=== PATIENT | male | born 1960 | race Caucasian/White ===

== ENCOUNTER 2019-11-06 08:32 | Outpatient (CLI) | payer OTHER ==
[~2019-11-06] VITALS: Ht 172.7 cm; Wt 54.9 kg
[2019-11-06] VITALS (18 sets, daily range): BP systolic 104–172; BP diastolic 72–114
--- NOTE | ~2019-11-06 | HEMODYNAMI ---
PATIENT:INOCENCIO PRASAD MEDICAL RECORD: [id number] : 64 [id number] ADMISSION DATE: 11/06/19 Generatedon:11/06/201910:17 Patient name: INOCENCIO PRASAD Patient #: [id number] SSN: [id number] : 1960 Date of study: 11/06/2019 Page: Of Hemodynamic Procedure Report Patient Data Patient Demographics Procedure consent was obtained First Name: INOCENCIO Gender: Male Last Name: OSMAR : 1960 Patient #: [id number] Age: 59 year(s) Race: SSN: [id number] Additional ID: [id number] Contact details [address]: [address] [place] [address] State: [place] City: [place] Zip code: [facility] Past Medical History Allergies Allergen Reaction Date Comments Reported Erythromycin 11/06/2019 Admission Admission Data Admission Date: 11/06/2019 Admission Time: 8:32 Admit Source: Emergency department Height (in.): 68.11 BSA: 1.73 (m2) Height (cm.): 173 BMI: 20.38 (kg/m2) Weight (lbs.): 134.48 Weight (kg.): 61 Current Diagnosis Diagnosis Description STEMI Lab Results Lab Result Date: 11/06/2019 Lab Result Time: 0:00 CBC Name Units Result Min Max Hemoglobin g/dl 11.1 *-(----)-- 13.5 17.5 Procedure Procedure Types Cath Procedure Diagnostic Procedure LHC LH w/Coronaries FFR/IVUS FFR Initial Sedation Charges Moderate Sedation up to 15 minutes Moderate Sedation up to 30 minutes PCI Procedure AMI/SVG/SIGNALS INTELLIGENCE ANALYST PTCA or Stent SIGNALS INTELLIGENCE ANALYST-BMS/BHUPENDRA Initial Hemochron ACT Test Procedure Description Procedure Date Procedure Date: 11/06/2019 Procedure Start Time: 9:33 Procedure End Time: 10:12 Procedure Staff Name Function Eric Warner MD Performing Physician Brock Simons RT Scrub Clotilde Holt RT Monitor Nat Fernando RN Nurse Procedure Data Cath Procedure Fluoroscopy Diagnostic fluoroscopy Total fluoroscopy Time: 8.4 time: 8.4 min min Diagnostic fluoroscopy Total fluoroscopy dose: 751 dose: 751 mGy mGy Contrast Material Contrast Material Type Amount (ml) Isovue 300 161 Entry Location Entry Primary Successful Side Size Upsize Upsize Entry Closure Succes sful Closure Location (Fr) 1 (Fr) 2 (Fr) Remarks Device Remarks Femoral Right 6 Fr Exoseal artery Short Estimated blood loss: 10 ml Diagnostic catheters Device Type Used For End Catheter Placement MULTIPACK JL 4.0 5Fr Left Coronary catheter Angiography MULTIPACK 3DRC 5Fr Right Coronary catheter Angiography MULTIPACK Pigtail 5 Fr Ventriculography catheter MULTIPACK 3DRC 5Fr Right Coronary catheter Angiography Procedure Complications No complications Procedure Medications Medication Administration Route Dosage 0.9% NaCl I.V. 100 ml/hr Oxygen etCO2 Nasal cannula 2 l/min Lidocaine 2% added to field 20 Heparin Flush Bag added to field 2 bags (1000units/500ml NS) Versed I.V. 2 mg Fentanyl I.V. 50 mcg Heparin Bolus I.V. 2000 units Integrilin (Bolus I.V. 5.6 ml 2mg/ml) Integrilin (Bolus wasted 4.4 ml 2mg/ml) Versed I.V. 2 mg Fentanyl I.V. 50 mcg Plavix P.O. 600 mg Nitroglycerin IC/IA I.C. 50 mcg Hemodynamics Rest BSA: 1.73 (m2) HGB: 11.1 (g/dl) O2 Consumption: Estimated: 209.07 (ml/min) O2 Co nsumption indexed: Estimated:120.85 (ml/min/m) Heart Rate: 77 (bpm) Pressure Samples Time Site Value (mmHg) Purpose Heart Use Rate(bpm) 9:39 LV 113/-5,6 Snapshot 83 Gradients Valve Time Site Site Mean SEP/DFP Peak To Heart Use 1 2 (mmHg) (sec/min) Peak Rate (mmHg) (bpm) Aortic 9:40 LV AO 10 Snapshots Pre Cath Intra NCS Post Cath Vital Signs Time Heart Resp SPO2 etCO2 NIBP (mmHg) Rhythm Pain Sedation Rate (ipm) (%) (mmHg) Status Level (bpm) 9:28:58 77 13 98 29.2 145/97(125) NSR w/ ST 0 (11) 10(A) Elevation , No pain 9:33:17 76 14 98 38.2 139/91(117) NSR w/ ST 0 (11) 10(A) Elevation , No pain 9:37:34 80 16 98 21.7 122/78(100) NSR w/ ST 0 (11) 10(A) Elevation , No pain 9:41:48 85 14 98 42.7 116/74(89) NSR w/ ST 0 (11) 9(A) Elevation , No pain 9:45:58 83 15 98 44.9 109/70(91) NSR w/ ST 0 (11) 9(A) Elevation , No pain 9:50:06 84 16 98 47.2 111/71(93) NSR 0 (11) 9(A) , No pain 9:54:53 88 20 97 38.9 146/100(124) NSR 0 (11) 9(A) , No pain 9:59:52 91 15 98 36.7 Measuring NSR 0 (11) 9(A) , No pain 10:00:11 88 15 97 38.9 171/112(136) NSR 0 (11) 9(A) , No pain 10:04:35 74 10 98 39.7 161/105(134) NSR 0 (11) 9(A) , No pain 10:08:57 83 11 98 38.2 168/106(146) NSR 0 (11) 10(A) , No pain 10:13:19 92 15 40.4 168/103(116) NSR 0 (11) 10(A) , No pain Medications Time Medication Route Dose Verified Delivered Reason Notes Effectiveness by by 9:27:48 0.9% NaCl I.V. 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 2 mg Nat for sedation Timmy King RN 9:30:48 Fentanyl I.V. 50 Nat for sedation mcg Timmy King RN 9:36:03 Versed I.V. 2 mg Nat for sedation Timmy King RN 9:36:14 Fentanyl I.V. 50 Nat for sedation mcg Timmy King RN 9:43:22 Heparin Bolus I.V. 2000 Nat for units Timmy King anticoagulation RN 9:43:31 Integrilin I.V. 5.6 Nat for (Bolus 2mg/ml) ml Timmy King antiplatelet RN therapy 9:43:48 Integrilin wasted 4.4 Nat for (Bolus 2mg/ml) ml Timmy King antiplatelet RN therapy 9:53:06 Plavix P.O. 600 Nat for mg Timmy King antiplatelet RN therapy 9:56:33 Nitroglycerin I.C. 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 Angina may occur at rest. 9:07:29 ACCPatient has been prescribed/administered the following anti-anginal medication within the last 2 weeks: None 9:07:35 Procedure Status Emergent Heart Cath (AMI). 9:07:44 Time tracking: Call back (After hours or weekends) 9:07:50 Plan of Care:Hemodynamics will remain stable., Cardiac rhythm will remain stable., Comfort level will be maintained., Respiratory function will remain adequate., Patient/ family verbilizes understanding of procedure., Procedure tolerated without complication., Recovers from procedure without complications.. 9:07:55 Full Disclosure recording started 9:08:07 H&P Date Dictated: 11/06/2019 Within 30 days and on chart.. 9:08:11 Family unavailable. 9:08:14 Patient NPO since Midnight. 9:08:23 Patient allergic to Erythromycin 9:09:30 Is the patient allergic to Iodine/contrast media? No. 9:09:32 Was the patient premedicated? N/A 9:09:34 Is patient on blood thinner?No 9:09:39 ACC The patient was administered the following blood thiners within the last 24 hours: ACCHeparin 9:09:53 Patient diabetic? No. 9:10:38 Patient Height : 68.11 inches 9:10:41 Patient Weight : 134.48 lbs 9:10:47 Current Diagnosis : STEMI 9:11:32 Lab Result : Hemoglobin 11.1 g/dl 9:13:36 Procedure type changed to Cath procedure, Diagnostic procedure, LHC, LHC w/Coronaries, FFR/IVUS, FFR Initial, Sedation Charges, Moderate Sedation up to 15 minutes, Moderate Sedation up to 30 minutes, PCI procedure, AMI/SVG/SIGNALS INTELLIGENCE ANALYST PTCA or Stent, SIGNALS INTELLIGENCE ANALYST-BMS/BHUPENDRA Initial, Hemochron ACT Test 9:16:13 Maximum allowable contrast dose (3.7 X eGFR X 0.75)227 ml. 9:16:17 2) 60-89 Mildly reduced kidney function, and other findings (as for stage 1) point to kidney disease. 9:27:39 Vital chart was started 9:27:48 0.9% NaCl 100 ml/hr I.V. was administered by Nat King RN; used for procedure; Verbal order read back and verified. 9:27:54 Oxygen 2 l/min etCO2 Nasal cannula was administered by Nat King RN; used for procedure; Verbal order read back and verified. 9:27:59 Lidocaine 2% 20ml vial added to field was administered by Eric Warner MD; for local anesthetic; Verbal order read back and verified. 9:28:03 Heparin Flush Bag (1000units/500ml NS) 2 bags added to field was administered by Eric Warner MD; used for procedure; Verbal order read back and verified. 9:29:05 Patient arrives emergently. 9:29:07 Correct patient and procedure confirmed by team. 9:29:07 Warm blankets applied, and kyler hugger turned on for patient comfort. 9:29:08 ECG and BP/O2 sat monitors applied to patient. 9:29:09 Baseline sample Acquired. 9:29:33 Snore? Yes 9:29:34 Sleep apnea? Yes 9:29:41 Dentures? Yes in tight 9:29:45 Patient pain scale 0/10 ?. 9:29:53 IV patent on arrival in right antecubital with 0.9% NaCl at [facility]. 9:29:56 Lab results completed and on chart. 9:30:01 Right groin area was prepped with chlora-prep and draped in sterile fashion 9:30:05 Physician arrived 9:30:10 --------ALL STOP TIME OUT------ 9:30:11 Final Timeout: patient, procedure, and site verified with staff and physician. All members of the team are in agreement. 9:30:13 Right groin site verified by team. 9:30:18 Fire Safety Assessment: A--An alcohol-based skin anteseptic being used preoperatively., C--Open oxygen or nitrous oxide is being used., D--An ESU, laser, or fiber-optic light is being used. 9:30:21 Physical assessment completed. ASA score P 3 - A patient with severe systemic disease as per Eric Warner MD. 9:30:26 Sedation plan: IV Moderate Sedation Medication:Versed, Fentanyl 9:30:33 Use device set Femoral Dx 9:30:43 Versed 2 mg I.V. was administered by Nat King RN; for sedation; Verbal order read back and verified. 9:30:48 Fentanyl 50 mcg I.V. was administered by Nat King RN; for sedation; Verbal order read back and verified. 9:32:11 ACIST Syringe (57754) opened to sterile field. 9:32:20 Bag Decanter (2002) opened to sterile field. 9:32:21 Medline Cath Pack ([id number]) opened to sterile field. 9:32:23 ACIST Hand Control (17145) opened to sterile field. 9:32:24 ACIST Manifold (79744) opened to sterile field. 9:32:25 DIAGNOSTIC Multipack 5Fr catheter set (YH9187) opened to sterile field. 9:32:30 EMERALD Guide Wire (502-439) opened to sterile field. 9:32:32 SHEATH 6FR [place] (IBA481) opened to sterile field. 9:32:40 INFLATOR Merit BasixCompak (ST1126) opened to sterile field. 9:32:44 BMW 300cm [place] 2 J wire ([id number]) opened to sterile field. 9:32:46 TUBING High Pressure Extension Tubing (Timmy) (JB5002N) opened to sterile field. 9:32:57 Procedure started. 9:33:03 Local anesthetic to right femoral artery with Lidocaine 2% by Eric Warner MD.INITIAL ACCESS ONLY 9:33:43 A 6 Fr Short sheath was inserted into the Right Femoral artery 9:35:41 A MULTIPACK JL 4.0 5Fr catheter was advanced over the wire and used for Left Coronary Angiography. 9:35:44 LCA angiography performed. 9:36:01 Injector settings: Ml/sec: 3, Volume: 6, 9:36:03 Versed 2 mg I.V. was administered by Nat King RN; for sedation; Verbal order read back and verified. 9:36:14 Fentanyl 50 mcg I.V. was administered by Nat King RN; for sedation; Verbal order read back and verified. 9:37:03 Catheter removed. 9:37:40 A MULTIPACK 3DRC 5Fr catheter was advanced over the wire and used for Right Coronary Angiography. 9:38:28 RCA angiography performed. 9:38:54 Catheter removed. 9:39:25 A MULTIPACK Pigtail 5 Fr catheter was advanced over the wire and used for Ventriculography. 9:39:31 LV gram done using KENNEDY 9:40:11 EF : 40 % 9:40:20 Catheter removed. 9:40:25 Proceeding to intervention. 9:40:32 GUIDE 6FR XBLAD 3.5 catheter ([id number]) opened to sterile field. 9:40:59 6 Fr XBLAD3.5 guide catheter was inserted over the wire 9:41:26 BMW wire advanced. 9:43:22 Heparin Bolus 2000 units I.V. was administered by Nat King RN; for anticoagulation; Verbal order read back and verified. 9:43:31 Integrilin (Bolus 2mg/ml) 5.6 ml I.V. was administered by Nat King RN; for antiplatelet therapy; Verbal order read back and verified. 9:43:43 Wire advanced across lesion. 9:43:48 Integrilin (Bolus 2mg/ml) 4.4 ml wasted was administered by Nat King RN; for antiplatelet therapy; Verbal order read back and verified. 9:49:30 Inflate balloon Inflation number: 1 A EUPHORA 2.0 x 20 Balloon ([id number]) was prepped and advanced across the Dist CX , then inflated to 12 ELLE for 0:20 (min:sec) . 9:49:47 Inflation number: 2 The EUPHORA 2.0 x 20 Balloon ([id number]) was reinflated across the Dist CX , to 12 ELLE for 0:13 (min:sec) . 9:51:47 Balloon removed over the wire. 9:53:06 Plavix 600 mg P.O. was administered by Nat King RN; for antiplatelet therapy; Verbal order read back and verified. 9:54:32 Place stent Inflation Number: 1 A INTEGRITY RX 3.0 x 26 stent ([id number]) was prepped and advanced across the Dist CX1 100. The stent was deployed at 10 ELLE for 0:11 (min:sec) 0. 9:54:40 Stent catheter was removed intact over wire. 9:56:33 Nitroglycerin IC/IA 50 mcg I.C. was administered by Nat King RN; for vasodilation; Verbal order read back and verified. 9:58:38 Wire removed. 9:58:39 Guide catheter removed. 10:03:13 A MULTIPACK 3DRC 5Fr catheter was advanced over the wire and used for Right Coronary Angiography.IFR 10:05:49 mRCA lesion measured at 80 with IFR 10:07:10 Wire removed. 10:07:14 Guide Catheter removed. 10:07:28 EXOSEAL 6Fr (EX600) opened to sterile field. 10:07:32 Tegaderm 4 x 4 (1626W) opened to sterile field. 10:07:35 [place] Verrata Plus pressure wire (33999H) opened to sterile field. 10:08:49 Sheath removed intact; hemostasis achieved with Exoseal to the Right Femoral artery. 10:08:52 Procedure ended.(Physican Out) 10:09:15 Fluoroscopy time 08.40 minutes. 10:09:19 Fluoroscopy dose: 751 mGy 10:09:19 Flurop Dose total: 751 10:09:32 Dose Area Product 71062 mGy/cm. 10:09:39 Contrast amount:Isovue 300 161ml. 10:09:42 Maximum allowable dose exceeded? No. 10:09:50 Insertion/operative site no bleeding no hematoma. 10:09:59 Post-op/insertion site Right Femoral artery dressed using a 4 x 4 and Tegaderm. 10:09:59 ACT drawn and resulted at 282 seconds. (normal therapeutic range 180-240 seconds). 10:10:05 Post Procedure Pulses reassessed and unchanged 10:10:12 Post-procedure physical assessment completed. ASA score P 3 - A patient with severe systemic disease as per Eric Warner MD. 10:10:22 Post procedure rhythm: sinus rhythm 10:10:25 Estimated blood loss: 10 ml 10:10:34 Post procedure instruction explained to patient.Patient verbalizes understanding. 10:11:35 Procedure and supply charges have been captured, reviewed, submitted and are correct. 10:12:16 Procedure Complication : No complications 10:12:19 Vital chart was stopped 10:12:22 [facility] Findings: MVD- PCI performed (see procedure note) 10:12:24 Operative report dictated upon procedure completion. 10:12:25 See physician's report for complete and final results. 10:12:31 Report given to ICU. 10:12:37 Patient transfered to ICU with Bed. 10:12:47 Full Disclosure recording stopped 10:12:47 Procedure ended. 10:12:51 End room use (Document Last) 10:13:00 ACC-PCI Only Patient was given prescriptions, or instructed by Eric Warner MD to start/continue the following medications upon discharge: Plavix 10:14:11 FEMSTOP Gold (F81729) opened to sterile field. Intervention Summary Intervention Notes Time ActionType Lesion and Equipment Action# Pressure Duration Attributes Used 9:49:30 Inflate Dist CX EUPHORA 2.0 1 12 00:20 balloon x 20 Balloon ([id number]) 9:49:47 Reinflate Dist CX EUPHORA 2.0 2 12 00:13 balloon x 20 Balloon ([id number]) 9:54:32 Place stent Dist CX1 INTEGRITY RX 1 10 00:11 3.0 x 26 stent ([id number]) Device Usage Item Name Manufacture Quantity Catalog Hospital Part Current Mini mal Lot# / Number Charge Number Stock Stock Serial# Code ACIST Acist 1 66003 884366 292894 549348 20 DreamFunded (53544) Anametrix Inc Bag Decanter Microtek 1 2001S 078650 23999 164855 5 (2002S) Medical Inc. Medline Cath Medline 1 [id number] 494296 56942 947611 5 Pack ([id number]) ACIST Hand Acist 1 57829 910173 548553 352216 5 Control Medical (85700) Systems Inc ACIST Acist 1 19666 449514 847518 967183 5 Manifold Medical (60954) Systems Inc DIAGNOSTIC Cardinal 1 PD9006 141871 58146 485732 30 Multipack Health 5Fr catheter set (IF1543) EMERALD Cardinal 1 502-455 933023 373643 124633 5 Guide Wire [facility] (502-455) SHEATH 6FR Terumo 1 CAH195 047997 368127 190745 40 [place] (VYZ649) INFLATOR Merit 1 EE8076 601173 848794 904585 15 [facility] Medical BasixCompak (GS5354) BMW 300cm Alfonso 1 [id number] 274004 735673 547015 5 [place] 2 Vascular J wire (3127430L) TUBING High Merit 1 [id number] 154993 32043 267963 10 Pressure Medical Extension Tubing (Warner) (OC5843U) MULTIPACK JL Cardinal 1 308203 5 4.0 5Fr Health catheter MULTIPACK Cardinal 1 678780 5 3DRC 5Fr Health catheter MULTIPACK Cardinal 1 856155 5 Pigtail 5 Fr Health catheter GUIDE 6FR Cardinal 1 [id number] 745234 772408 394967 10 XBLAD 3.5 Health catheter (57739264) EUPHORA 2.0 Medtronic 1 [id number] 975055 446619 628880 5 [id number] x 20 Balloon ([id number]) INTEGRITY RX Medtronic 1 [id number] 890517 517418 846795 5 [id number] 3.0 x 26 stent ([id number]) EXOSEAL 6Fr Cardinal 1 EX600 708862 230167 380297 10 (EX600) Health Tegaderm 4 x 3M 1 1626W 678741 970331 166158 5 4 (1626W) [place] 1 66470B 895642 581837716 084138 5 Verrata Plus pressure wire (34465F) FEMSTOP Gold St Ag 1 R92545 560362 895771 321760 5 (E69785) Signature Audit Letcher Stage Time Signature Unsigned Intra-Procedure 11/06/2019 Clotilde Holt 10:15:00 AM RT(R) Intra-Procedure 11/06/2019 Nat King 10:15:30 AM RN Intra-Procedure 11/06/2019 Eric Warner MD 10:17:54 AM [facility] [address] [place] [address]
--- NOTE | ~2019-11-06 | HEMODYNAMI ---
PATIENT:INOCENCIO PRASAD MEDICAL RECORD: [id number] : 64 LOCATION:[facility] D.2306 ADMISSION DATE: 11/06/19 Generatedon:11/08/201910:17 Patient name: INOCENCIO PRASAD Patient #: [id number] SSN: [id number] : 1960 Date of study: 11/08/2019 Page: Of Hemodynamic Procedure Report Patient Data Patient Demographics First Name: INOCENCIO Gender: Male Last Name: OSMAR : 1960 Patient #: [id number] Age: 59 year(s) Race: SSN: [id number] Additional ID: [id number] Contact details [address]: [address] [place] [address] State: [place] City: [place] Zip code: [address] Past Medical History Allergies Allergen Reaction Date Comments Reported Erythromycin 11/06/2019 Admission Admission Data Admission Date: 11/06/2019 Admission Time: 11:25 Admit Source: Emergency department Room #: D.2306 Height (in.): 68.11 BSA: 1.73 (m2) Height (cm.): 173 BMI: 20.38 (kg/m2) Weight (lbs.): 134.48 Weight (kg.): 61 Current Diagnosis Diagnosis Description STEMI Lab Results Lab Result Date: 11/06/2019 Lab Result Time: 0:00 CBC Name Units Result Min Max Hemoglobin g/dl 11.1 *-(----)-- 13.5 17.5 Procedure Procedure Types Cath Procedure PCI Procedure Coronary Stent Coronary Stent Initial Hemochron ACT Test Procedure Description Procedure Date Procedure Date: 11/08/2019 Procedure Start Time: 9:51 Procedure End Time: 10:10 Procedure Staff Name Function Eric Warner MD Performing Physician Clotilde Holt RT Monitor Nat King RN Nurse Tami Lange RT Scrub Román Spaulding MD Additional personnel Procedure Data Cath Procedure Fluoroscopy Diagnostic fluoroscopy Total fluoroscopy Time: 3.1 time: 3.1 min min Contrast Material Contrast Material Type Amount (ml) Isovue 300 57 Entry Location Entry Primary Successful Side Size Upsize Upsize Entry Closure Succes sful Closure Location (Fr) 1 (Fr) 2 (Fr) Remarks Device Remarks Femoral Left 6 Fr Exoseal artery Short Estimated blood loss: 10 ml Procedure Complications No complications Procedure Medications Medication Administration Route Dosage 0.9% NaCl I.V. 100 ml/hr Oxygen etCO2 Nasal cannula 2 l/min Lidocaine 2% added to field 20 Heparin Flush Bag added to field 2 bags (1000units/500ml NS) Refer to Anesthesia Notes for Sedation Medications Heparin Bolus I.V. 6000 units Nitroglycerin IC/IA I.C. 50 mcg Hemodynamics Rest BSA: 1.73 (m2) O2 Consumption: Estimated: 216.89 (ml/min) O2 Consumption indexed : Estimated:125.37 (ml/min/m) Heart Rate: 89 (bpm) Snapshots Pre Cath Intra NCS Post Cath Vital Signs Time Heart Resp SPO2 etCO2 NIBP (mmHg) Rhythm Pain Sedation Rate (ipm) (%) (mmHg) Status Level (bpm) 9:36:14 79 10 99 20 120/83(106) NSR 0 (11) 10(A) , No pain 9:40:20 79 10 100 25.6 135/66(114) NSR 0 (11) 5(A) , No pain 9:44:34 82 12 99 32.4 95/56(76) NSR 0 (11) 5(A) , No pain 9:48:33 84 14 99 20.3 86/56(65) NSR 0 (11) 5(A) , No pain 9:52:31 88 12 98 30.1 82/55(66) NSR 0 (11) 5(A) , No pain 9:56:28 87 11 98 35.4 85/49(71) NSR 0 (11) 5(A) , No pain 10:00:26 87 17 98 31.6 87/51(60) NSR 0 (11) 5(A) , No pain 10:04:24 94 26 98 38.4 100/55(80) NSR 0 (11) 4(A) , No pain 10:08:24 88 15 97 35.4 99/59(75) NSR 0 (11) 4(A) , No pain Medications Time Medication Route Dose Verified Delivered Reason Notes Effectiveness by by 9:35:14 0.9% NaCl I.V. 100 Nat used for ml/hr Timmy King floor person 9:35:22 Oxygen etCO2 2 Nat used for Nasal l/min Timmy King procedure cannula RN 9:35:25 Lidocaine 2% added 20ml for local to vial Timmy Warner MD anesthetic field 9:35:29 Heparin Flush added 2 used for Bag to bags Timmy Warner MD procedure (1000units/500ml field NS) 9:39:45 Refer to for sedation Anesthesia Notes Timmy Warner MD for Sedation Medications 9:54:49 Heparin Bolus I.V. 6000 Nat for verif ied units Timmy King anticoagulation with Dr. KELL Warner 10:02:14 Nitroglycerin I.C. 50 for IC/IA mcg Timmy Warner MD vasodilation Procedure Log Time Note 9:21:11 Patient Height : 68.11 inches 9:21:11 Patient Weight : 134.48 lbs 9:22:01 Procedure Status Urgent Heart Cath (IP). 9:22:03 Nat King RN sent for patient. Start room use. 9:22:05 Time tracking: Regular hours (M-F 7:00 - 5:00) 9:22:09 Plan of Care:Hemodynamics will remain stable., Cardiac rhythm will remain stable., Comfort level will be maintained., Respiratory function will remain adequate., Patient/ family verbilizes understanding of procedure., Procedure tolerated without complication., Recovers from procedure without complications.. 9:22:26 Patient received from Med II to CCL 2 Alert and oriented. Tansferred to table in Supine position. 9:35:05 Vital chart was started 9:35:14 0.9% NaCl 100 ml/hr I.V. was administered by Nat King RN; used for procedure; Verbal order read back and verified. 9:35:22 Oxygen 2 l/min etCO2 Nasal cannula was administered by Nat King RN; used for procedure; Verbal order read back and verified. 9:35:25 Lidocaine 2% 20ml vial added to field was administered by Eric Warner MD; for local anesthetic; Verbal order read back and verified. 9:35:29 Heparin Flush Bag (1000units/500ml NS) 2 bags added to field was administered by Eric Warner MD; used for procedure; Verbal order read back and verified. 9:39:45 Refer to Anesthesia Notes for Sedation Medications was administered by Eric Warner MD; for sedation; Verbal order read back and verified. 9:40:00 H&P Date Dictated: 11/08/2019 Greater than 30 days; new H&P dictated by physician. Or brief H&P completed., Emergent; H&P N/A, Within 30 days and on chart., H&P Addendum completed by physician on day of procedure. (MUST COMPLETE FOR ALL OUTPATIENTS), ER History on chart., New H&P dictated by physician.. 9:40:02 Pre-procedure instructions explained to patient. 9:40:05 Family unavailable. 9:40:07 Patient NPO since Midnight. 9:40:13 Is the patient allergic to Iodine/contrast media? No. 9:40:14 Was the patient premedicated? Yes 9:40:16 Is patient on blood thinner?Yes 9:40:20 ACC The patient was administered the following blood thiners within the last 24 hours: ACCPlavix 9:40:23 Patient diabetic? No. 9:40:30 Previous problem with sedation/anesthesia? No ? 9:40:31 Snore? Yes 9:40:33 Sleep apnea? No 9:40:40 Dentures? Yes in tight 9:40:50 Patient pain scale 0/10 ?. 9:41:00 IV patent on arrival in left forearm with 0.9% NaCl at [facility]. 9:41:05 Lab results completed and on chart. 9:41:10 Left groin area was prepped with chlora-prep and draped in sterile fashion 9:41:11 Alarms reviewed by R. N. 9:41:12 Sharps counted by scrub and verified by R.N. 9:41:14 Physician paged 9:41:15 Physician arrived 9:48:45 --------ALL STOP TIME OUT------ 9:48:48 Final Timeout: patient, procedure, and site verified with staff and physician. All members of the team are in agreement. 9:49:12 Left groin site verified by team. 9:49:16 Fire Safety Assessment: A--An alcohol-based skin anteseptic being used preoperatively., C--Open oxygen or nitrous oxide is being used., D--An ESU, laser, or fiber-optic light is being used. 9:49:20 Physical assessment completed. ASA score P 3 - A patient with severe systemic disease as per Eric Warner MD. 9:49:23 1) 90+ Normal kidney functon but urine findings or structural abnormalities or genetic trait point to kidney disease. 9:49:26 Maximum allowable contrast dose (3.7 X eGFR X 0.75)249 ml. 9:49:31 Sedation plan: TIVA Medication:Propofol 9:51:12 Use device set Femoral Dx 9:51:14 Procedure started. 9:51:14 Full Disclosure recording started 9:51:25 Local anesthetic to left femerol artery with Lidocaine 2% by Eric Warner MD.INITIAL ACCESS ONLY 9:51:35 A 6 Fr Short sheath was inserted into the Left Femoral artery 9:52:00 Zero performed for pressure channel P1 9:52:28 Baseline sample Acquired. 9:52:39 ACIST Syringe (53888) opened to sterile field. 9:52:40 Bag Decanter (2002) opened to sterile field. 9:52:41 Medline Cath Pack ([id number]) opened to sterile field. 9:52:42 ACIST Hand Control (89737) opened to sterile field. 9:52:42 ACIST Manifold (83564) opened to sterile field. 9:52:45 Tegaderm 4 x 4 (1626W) opened to sterile field. 9:52:49 EMERALD Guide Wire (502-486) opened to sterile field. 9:53:44 SHEATH 6FR [place] (XBP119) opened to sterile field. 9:53:45 INFLATOR Merit BasixCompak (QW2036) opened to sterile field. 9:53:46 TUBING High Pressure Extension Tubing (Timmy) (QH4086L) opened to sterile field. 9:53:47 GUIDE 6FR JR 4.0 catheter (BO3MN93) opened to sterile field. 9:53:48 BMW 300cm [place] 2 J wire ([id number]) opened to sterile field. 9:54:14 Pre PCI Site: [place] mRCA has 70% stenosis. 9:54:20 6 Fr JR4 guide catheter was inserted over the wire 9:54:49 Heparin Bolus 6000 units I.V. was administered by Nat King RN; for anticoagulation; verified with Dr. Warner Verbal order read back and verified. 9:56:40 BMW wire advanced. 10:00:44 Place stent Inflation Number: 1 A INTEGRITY RX 3.5 x 30 stent ([id number]) was prepped and advanced across the Mid RCA 70. The stent was deployed at 13 ELLE for 0:10 (min:sec) 0. 10:02:08 Stent catheter was removed intact over wire. 10:02:09 Wire removed. 10:02:14 Nitroglycerin IC/IA 50 mcg I.C. was administered by Eric Warner MD; for vasodilation; Verbal order read back and verified. 10:04:45 Guide catheter removed. 10:04:59 EXOSEAL 6Fr (EX600) opened to sterile field. 10:05:31 Sheath removed intact; hemostasis achieved with Exoseal to the Left Femoral artery. 10:05:35 Procedure ended.(Physican Out) 10:06:09 Fluoroscopy time 03.10 minutes. 10:06:21 Dose Area Product 9676 mGy/cm. 10:06:26 Contrast amount:Isovue 300 57ml. 10:06:28 Maximum allowable dose exceeded? No. 10:06:29 Sharps counted by scrub and verified by R.N. 10:06:31 Insertion/operative site no bleeding no hematoma. 10:06:35 Post-op/insertion site Left Femoral artery dressed using a 4 x 4 and Tegaderm. 10:06:44 Post Procedure Pulses reassessed and unchanged 10:06:51 Post-procedure physical assessment completed. ASA score P 3 - A patient with severe systemic disease as per Eric Warner MD. 10:06:54 Post procedure rhythm: unchanged. 10:06:59 Estimated blood loss: 10 ml 10:07:01 Post procedure instruction explained to patient.Patient verbalizes understanding. 10:07:16 Procedure and supply charges have been captured, reviewed, submitted and are correct. 10:08:20 Procedure Complication : No complications 10:08:22 Vital chart was stopped 10:10:[address] [facility] Findings: MVD- PCI performed (see procedure note) 10:10:08 Operative report dictated upon procedure completion. 10:10:09 See physician's report for complete and final results. 10:10:13 Report given to ICU. 10:10:28 Patient transfered to ICU with Bed. 10:10:52 Procedure ended. 10:10:52 Full Disclosure recording stopped 10:10:59 End room use (Document Last) 10:11:33 ACT drawn and resulted at 355 seconds. (normal therapeutic range 180-240 seconds). 10:12:46 FEMSTOP Gold ([id number]) opened to sterile field. Intervention Summary Intervention Notes Time ActionType Lesion and Equipment Action# Pressure Duration Attributes Used 10:00:44 Place stent Mid RCA INTEGRITY RX 1 13 00:10 3.5 x 30 stent ([id number]) Device Usage Item Name Manufacture Quantity Catalog Hospital Part Current Minimal Lot# / Number Charge Number Stock Stock Serial# Code ACIST Acist 1 65695 035183 716832 449341 20 Syringe Medical (43121) Systems Inc Bag Decanter Microtek 1 2001S 159013 44461 020992 5 (2001S) Medical Inc. Medline Cath Medline 1 [id number] 503991 05396 064880 5 Pack ([id number]) ACIST Hand Acist 1 31205 534124 611241 599222 5 Control Medical (97768) Systems Inc ACIST Acist 1 66503 142902 039607 303309 5 Manifold Medical (73646) Systems Inc Tegaderm 4 x 3M 1 1626W 245407 721338 871852 5 4 (1626W) EMERALD Cardinal 1 502-455 978468 663488 420143 5 Guide Wire [facility] (502-455) SHEATH 6FR Terumo 1 PQR165 777308 281313 221836 40 [place] (UAQ770) INFLATOR Merit 1 LE8827 676903 322799 663907 15 Merit Medical BasixCompak (DC1247) TUBING High Merit 1 SC1868Q 684989 99271 038043 10 Pressure Medical Extension Tubing (Warner) (QD9481S) GUIDE 6FR JR Medtronic 1 [id number] 674253 25402 654200 1 4.0 catheter (ZB3RD17) BMW 300cm Alfonso 1 [id number] 163529 428693 087015 5 [place] 2 Vascular J wire (0826744K) INTEGRITY RX Medtronic 1 [id number] 583787 798147 448535 5 [id number] 3.5 x 30 stent ([id number]) EXOSEAL 6Fr Cardinal 1 EX600 316376 330866 355826 10 (EX600) Health FEMSTOP Gold St Ag 1 E88197 349896 796175 354212 5 ([id number]) Signature Audit [place] Stage Time Signature Unsigned Intra-Procedure 11/08/2019 Clotilde Holt 10:14:50 AM RT(R) Intra-Procedure 11/08/2019 Nat King 10:15:20 AM RN Intra-Procedure 11/08/2019 Eric Warner MD 10:17:15 AM Signatures Performing Physician : Signature : Eric Warner MD Date : Time : Monitor : Clotilde Holt Signature : RT Date : Time : Nurse : Nat King RN Signature : Date : Time : [place] [id number] [place] [address]
--- NOTE | 2019-11-06 08:43 | NUR ---
BLOOD SENT TO LAB WITH IV START AT THIS TIME
--- NOTE | 2019-11-06 08:45 | NUR ---
REPORTS PAIN 2/10 AFTER 4MG MORPHINE
[2019-11-06 08:50] LABS: BASOPHILS 0.5 % (0-2); HEMATOCRIT 33.8 % (42.0-54.0); HEMOGLOBIN 11.1 g/dL (13.5-17.5); IMMATURE GRANULOCYTES 0.3 % (0-5); LYMPHOCYTES 8.9 % (15-50); MCH 28.9 pg (26.0-34.0); MCHC 32.8 g/dL (31.0-37.0); MEAN PLATELET VOLUME 8.4 fL (7.4-10.4); MONOCYTES 7.8 % (2-11); NEUTROPHILS 80.5 % (40-80); PLATELET COUNT 361 10x3/uL (130-400); RBC 3.84 10x6/uL (4.20-6.10); RDW 13.1 % (11.5-14.5); WBC 10.1 10x3/uL (4.8-10.8)
[2019-11-06 08:58] LABS: CALC OSMOLALITY 269 mosm/kg (275-300); CALCIUM 8.8 mg/dL (8.5-10.1); CARBON DIOXIDE 24.2 mmol/L (21.0-32.0); CHLORIDE - SERUM 100 mmol/L (98-107); GLUCOSE 199 mg/dL (74-106); POTASSIUM - SERUM 3.6 mmol/L (3.5-5.1); SODIUM 133 mmol/L (136-145); UREA NITROGEN 7 mg/dL (7-18); eGFR NON AFRICAN AMERICAN 82 mL/min (90-120)
[2019-11-06 09:19] LABS: ALBUMIN 3.6 g/dL (3.4-5.0); ALKALINE PHOSPHATASE 106 U/L (30-120); ALT (SGPT) 14 U/L (10-68); BILIRUBIN - TOTAL 0.12 mg/dL (0.2-1.3); CHOL - HDL RATIO 3.5 ratio (2.3-4.9); CHOLESTEROL, TOTAL 151 mg/dL (0-200); CKMB 2.2 U/L (0.0-3.6); CREATINE KINASE 113 UL (21-232); HDL CHOLESTEROL 43 mg/dL (32-96); LDL CHOLESTEROL 97 mg/dL (0-100); LDL-HDL RATIO 2.3 ratio (1.5-3.5); MAGNESIUM - SERUM 1.7 mg/dL (1.8-2.4); PRO BNP 32 pg/mL (0-125); PROTEIN - SERUM 8.2 g/dL (6.4-8.2); TRIGLYCERIDE 57 mg/dL (30-200)
[2019-11-06 09:24] LABS: TROPONIN-I 0.176 ng/mL (0.000-0.060)
--- NOTE | 2019-11-06 10:45 | NUR ---
RECEIVED PT FROM REGISTERED NURSE VIA BED ACCOMPANIED BY REGISTERED NURSE STAFF TO ROOM 2306. PT ALERT AND AWAKE X4. WILL CONT TO MONITOR.
--- NOTE | 2019-11-06 13:00 | NUR ---
PT RESTING IN BED WITH EYES CLOSED. VSS. NO S/S OF BLEEDING NOTED AT THIS TIME. NO ACUTE NEEDS OR DISTRESS NOTED AT THIS TIME. WILL CONT TO MONITOR.
--- NOTE | 2019-11-06 15:00 | NUR ---
REASSESSMENT COMPLETED PER FLOWSHEET, SEE FLOWSHEET FOR INFORMATION. PT DENIES ANY ACUTE NEEDS OR DISTRESS AT THIS TIME. VSS. WILL CONT TO MONITOR. NO S/S OF BLEEDING NOTED.
--- NOTE | 2019-11-06 16:07 | NUR ---
PT HAD 150ML OF GREEN EMISIS. ZOFRAN GIVEN. WILL CONT TO MONITOR.
--- NOTE | 2019-11-06 17:00 | NUR ---
DINNER TRAY GIVEN, PT DENIES WANTING ANY FOOD ON TRAY. VSS. WILL CONT TO MONITOR.
--- NOTE | 2019-11-06 19:00 | NUR ---
REPORT RECEIVED INITIAL ASSESSMENT COMPLETE. PT ALERT AND ORIENTED FOLLOWS COMMANDS. CM READING SR WITHOUT ECTOPY ALARMS ON AND AUDIBLE. RESP EVEN AND NONLABORED O2 SAT 98-100%. RIGHT GROIN CATH SITE DRESSING CDI. NO BLEEDING OR SWELLING NOTED PPP. PT DENIES PAIN. BED LOW POSITION SIDE RAILS UP TIMES 3 FOR BED MOBILITY AND SAFETY CL IN REACH PT DENIES NEEDS AT THIS TIME. VSS WILL CONTINUE TO MONITOR
--- NOTE | 2019-11-06 21:00 | NUR ---
PT RESTING QUIETLY EYES CLOSED VSS NO DISTRESS NOTED CPOC
--- NOTE | 2019-11-06 23:00 | NUR ---
REASSESSMENT COMPLETE NO CHANGES PPP RIGHT GROIN DRESSING CDI PT DENIES PAIN OR SOB. CL IN REACH CPOC
[2019-11-07] VITALS (23 sets, daily range): BP systolic 97–120; BP diastolic 60–89
--- NOTE | 2019-11-07 03:00 | NUR ---
REASSESSMENT COMPLETE NO CHANGES PT DENIES PAIN OR NEEDS AT THIS TIME. VSS CPOC
[2019-11-07 03:34] LABS: BASOPHILS 0.5 % (0-2); EOSINOPHILS 0.9 % (0-7); HEMATOCRIT 32.5 % (42.0-54.0); HEMOGLOBIN 10.3 g/dL (13.5-17.5); IMMATURE GRANULOCYTES 0.3 % (0-5); LYMPHOCYTES 12.7 % (15-50); MCH 28.1 pg (26.0-34.0); MCHC 31.7 g/dL (31.0-37.0); MCV 88.6 fL (80.0-100.0); MEAN PLATELET VOLUME 8.4 fL (7.4-10.4); MONOCYTES 8.6 % (2-11); PLATELET COUNT 312 10x3/uL (130-400); RBC 3.67 10x6/uL (4.20-6.10); RDW 13.3 % (11.5-14.5); WBC 10.8 10x3/uL (4.8-10.8)
[2019-11-07 03:48] LABS: ALBUMIN 3.1 g/dL (3.4-5.0); ALKALINE PHOSPHATASE 95 U/L (30-120); BILIRUBIN - TOTAL 0.39 mg/dL (0.2-1.3); CALCIUM 8.5 mg/dL (8.5-10.1); CARBON DIOXIDE 22.2 mmol/L (21.0-32.0); CHLORIDE - SERUM 102 mmol/L (98-107); CREATININE - SERUM 0.8 mg/dL (0.6-1.3); POTASSIUM - SERUM 4.1 mmol/L (3.5-5.1); PROTEIN - SERUM 7.3 g/dL (6.4-8.2); SODIUM 137 mmol/L (136-145); eGFR NON AFRICAN AMERICAN > 90 mL/min (90-120)
[2019-11-07 03:51] LABS: ALT (SGPT) 26 U/L (10-68); CALC OSMOLALITY 272 mosm/kg (275-300); GLUCOSE 90 mg/dL (74-106); UREA NITROGEN 10 mg/dL (7-18)
[2019-11-07] MEDS ORDERED: HYDROXYCHLOROQ200 MG PO (03:55)
[2019-11-07] MEDS ORDERED: PAXIL20 MG PO (03:56)
[2019-11-07] MEDS ORDERED: ARAVA10 MG PO (03:56)
[2019-11-07] MEDS ORDERED: TIROSINT75 MCG PO (04:00)
--- NOTE | 2019-11-07 04:00 | NUR ---
PT INQUIRING WHERE VESSEL THAT WAS STENTED WAS AND NAME. GIVEN A HANDOUT WITH DIAGRAM OF VESSELS OF HEART AND QUESTIONS ANSWERED. PT STATES "HEART DR TOLD ME ANOTHER VESSEL NEEDS TO BE DONE AND HE IS GOING TO DO IT FRIDAY". PT DENIES NEEDS AT THIS TIME VSS CPOC
[2019-11-07] MEDS ORDERED: LATUDA40 MG PO (04:02)
[2019-11-07] MEDS ORDERED: CHOLECALCIFEROL PO (04:09)
--- NOTE | 2019-11-07 05:45 | NUR ---
ANSWERED PTS CALL LIGHT REQUESTING ZOFRAN FOR NAUSEA. MEDICATED PER PRN SEE EMAR. PT STATES "DANA HAD TO TAKE ZOFRAN AT HOME HERE LATELY FOR NAUSEA". WILL MONITOR
[2019-11-07 10:15] LABS: CHOL - HDL RATIO 3.6 ratio (2.3-4.9); LDL-HDL RATIO 2.3 ratio (1.5-3.5)
--- NOTE | 2019-11-07 18:08 | NUR ---
0800-RECIEVED AWAKE AND ALERT-STATS -R LATERAL CHEST AREA AND CHRONIC BACK PAIN -5-DR EASTON AT [facility]-DISCUSSED WITH PT PLANNED ETL ARCHITECT WITH ADDITIONAL CATH/STENTING-R GROIN SOFT TO TOUCH 0830-COREG PO GIVEN-PT EDUCATION GIVEN REGARDING PURPOSE AND NEED-PLAVIX PO GIVEN REGARDING PURPOSE AND NEED-STRESSED NOT TO STOP TAKING MEDICATION UNLESS DIRECTED BY AIRWAYS OPERATIONS SPECIALIST 1130-AMBULATING EASILY IN ROOM-STATES BACK PAIN REMAINS PRESENT -R SIDE CHEST DISCOMFORT DECREASED-CONSENT OBTAINED FOR CARDIAC CATH- 1330-DR MACEDO AT BEDSIDE-PT SPOKE WITH SAME REGARDING CHRONIC BACK PAIN AND TREATMENT-STATES 12/04 CURRENTLY 1400-NORCO 5/325 PO GIVEN ORDERED 1530-PT STATES PAIN AT 10/04-FOR BACK PAIN 1715-NOTED R GROIN SITE-SMALL HEMATOMA TO R GROIN AND MARKED FOR REFERENCE POINT
--- NOTE | 2019-11-07 19:00 | NUR ---
REPORT RECEIVED. INITIAL ASSESSMENT COMPLETE. PT ALERT AND ORIENTED DENIES PAIN OR DISCOMFORT. CM READING SR ALARMS ON AND AUDIBLE. RESP EVEN NONLABORED O2 SAT 99%ON ROOM AIR. RIGHT GROIN CATH SITE WITH DRESSING CDI. PER REPORT SMALL HEMATOMA NOTED THIS AFTERNOON. NO INCREASE IN SIZE AT THIS TIME SOFT AND PPP WILL CONTINUE TO MONITOR, BED LOW POSITION SIDE RAILS UP TIMES 3 FOR SAFETY AND BED MOBILITY CL IN REACH CPOC
--- NOTE | 2019-11-07 20:00 | NUR ---
ANSWERED PTS CALL LIGHT REQUESTING PAIN PILL FOR BACK PAIN PT STATES HE HAS CHRONIC BACK PAIN MEDICATED SEE PRN EMAR WILL CONTINUE TO MONITOR
--- NOTE | 2019-11-07 23:00 | NUR ---
REASSESSMENT COMPLETE NO CHANGES VSS CPOC
[2019-11-08] VITALS (9 sets, daily range): BP systolic 94–116; BP diastolic 60–78; Ht 172.7 cm; Wt 54.9 kg
--- NOTE | 2019-11-08 01:39 | NUR ---
PT RESTING QUIETLY WITH EYES CLOSED VSS CPOC
[2019-11-08 03:51] LABS: BASOPHILS 0.8 % (0-2); EOSINOPHILS 4.5 % (0-7); HEMATOCRIT 30.1 % (42.0-54.0); HEMOGLOBIN 9.7 g/dL (13.5-17.5); IMMATURE GRANULOCYTES 0.3 % (0-5); LYMPHOCYTES 28.7 % (15-50); MCH 28.1 pg (26.0-34.0); MCHC 32.2 g/dL (31.0-37.0); MCV 87.2 fL (80.0-100.0); MEAN PLATELET VOLUME 8.4 fL (7.4-10.4); NEUTROPHILS 54.7 % (40-80); PLATELET COUNT 305 10x3/uL (130-400); RBC 3.45 10x6/uL (4.20-6.10); RDW 13.2 % (11.5-14.5)
[2019-11-08 04:02] LABS: WBC 7.8 10x3/uL (4.8-10.8)
[2019-11-08 04:14] LABS: ALBUMIN 2.8 g/dL (3.4-5.0); ALKALINE PHOSPHATASE 84 U/L (30-120); CALC OSMOLALITY 264 mosm/kg (275-300); CALCIUM 8.2 mg/dL (8.5-10.1); CARBON DIOXIDE 26.7 mmol/L (21.0-32.0); CHLORIDE - SERUM 99 mmol/L (98-107); CREATININE - SERUM 0.9 mg/dL (0.6-1.3); GLUCOSE 104 mg/dL (74-106); POTASSIUM - SERUM 3.6 mmol/L (3.5-5.1); PROTEIN - SERUM 6.7 g/dL (6.4-8.2); SODIUM 133 mmol/L (136-145); UREA NITROGEN 10 mg/dL (7-18); eGFR NON AFRICAN AMERICAN > 90 mL/min (90-120)
[2019-11-08 04:15] LABS: ALT (SGPT) 19 U/L (10-68)
--- NOTE | 2019-11-08 07:31 | NUR ---
SEE ASSESSMENT. SEE ADL'S. NOTES REVIEWED. LABS REVIEWED. ORDERS REVIEWED.
--- NOTE | 2019-11-08 07:44 | NUR ---
patient stated he had chronic back pain and rated it 6/10.
--- NOTE | 2019-11-08 09:28 | NUR ---
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
--- NOTE | 2019-11-08 09:28 | NUR ---
iv resited on r upper arm.
[2019-11-08] MEDS ORDERED: COREG 3.1253.125 MG PO (11:16)
[2019-11-08] MEDS ORDERED: PLAVIX75 MG PO (11:16)
--- NOTE | 2019-11-08 15:00 | NUR ---
L GROIN SITE CDI NO HEMATOMA OR BRUISING NOTED.
--- NOTE | 2019-11-08 15:27 | NUR ---
PT DISCHARGED AT THIS TIME. LEFT VIA WHEELCHAIR WITH DAUGHTER.
== END 2019-11-08 15:29 | disposition home or self-care (01) ==
LOC: D.ER 08:32 → D.ICU 10:49 → D.ER 11:24 → D.ICU 11:24 → D.ER 11:25 → EDSTATUS 14:05 → D.ER 11-08 15:29 → D.ICU 11-08 15:29
PROVIDERS: Emergency Medicine; Internal Medicine Cardiovascular Disease; ATTEND Internal Medicine Nephrology
DX: I21.9 Acute myocardial infarction, unspecified (principal); I25.10 Atherosclerotic heart disease of native coronary artery without angina pectoris; I10 Essential (primary) hypertension; G89.29 Other chronic pain; M54.9 Dorsalgia, unspecified